=== PATIENT | female | born 1945 | race Caucasian/White ===

== ENCOUNTER 2025-02-07 11:26 | Inpatient (IN) | payer MEDICARE ==
[~2025-02-07] VITALS: Ht 162.6 cm; Wt 79.4 kg
[2025-02-07 13:51] VITALS: BP 123/62; TEMP 97.7
[2025-02-08 11:25] VITALS: BP 123/62; TEMP 97.7
[2025-02-08 11:28] VITALS: BP 123/62; TEMP 97.7
[2025-02-09] MEDS ORDERED: REMEDY ESSENTIAL ZINC PASTE 113 GM TOP PRN (22:00)
[2025-02-09 22:06] VITALS: BP 157/69; TEMP 98.3; O2SAT 99
[2025-02-09] MEDS ORDERED: DIET75TA33 PO (22:19)
[2025-02-09] MEDS ORDERED: BUPR75TA8 PO (22:19)
[2025-02-09] MEDS ORDERED: PANT40TA49 PO (22:19)
[2025-02-09] MEDS ORDERED: ENOX40DI SQ (22:19)
[2025-02-09] MEDS ORDERED: HYDR-4275 PO (22:19)
[2025-02-09] MEDS ORDERED: Medication Not On Formulary EA (Hydrocodone Bit/Acetaminophen (Hydrocodon-Acetaminophen PO SCH (22:30)
[2025-02-10 08:00] VITALS: BP 166/60; TEMP 98.3; O2SAT 96
[2025-02-10] MEDS ORDERED: DIETHYLPROPION PO SCH (09:00)
[2025-02-10] MEDS: PANTOPRAZOLE SODIUM 40 MG TABLET.DR PO SCH (09:56)
[2025-02-10] MEDS: HYDROCODONE/APAP 5-325MG TABLET PO PRN (10:29)
[2025-02-10] MEDS ORDERED: BUPR-53 PO (10:30)
[2025-02-10] MEDS ORDERED: VALS1TAB4 PO (10:32)
[2025-02-10] MEDS: ENOXAPARIN SODIUM 40 MG/0.4 ML DISP.SYRIN SQ SCH (10:37)
[2025-02-10] MEDS: HYDROCHLOROTHIAZIDE 12.5 MG CAPSULE PO SCH (12:53)
[2025-02-10] MEDS: METOPROLOL TARTRATE 25 MG TABLET PO SCH (12:53)
[2025-02-10 16:10] VITALS: O2SAT 96
[2025-02-10 17:00] VITALS: BP 124/42; TEMP 98.3; O2SAT 100
[2025-02-10] MEDS ORDERED: buPROPion 75 MG TABLET PO SCH (18:00)
[2025-02-10 20:51] VITALS: BP 120/53; TEMP 98.3; O2SAT 98
[2025-02-11 07:06] VITALS: BP 123/60; TEMP 97.2; O2SAT 98
[2025-02-11 08:00] VITALS: TEMP 97.7
[2025-02-11 08:34] LABS: BASOPHILS % (AUTO) 0.3 % (0.0-2.0); EOSINOPHILS # (AUTO) 0.2 K/uL (0.0-0.7); EOSINOPHILS % (AUTO) 2.7 % (0.0-7.0); HEMATOCRIT 27.3 % (31.2-41.9); HEMOGLOBIN 8.9 g/dL (10.9-14.3); LYMPHOCYTES # (AUTO) 1.6 K/uL (0.8-4.8); LYMPHOCYTES % (AUTO) 19.8 % (20.5-51.5); MEAN CORPUSCULAR HEMOGLOBIN 25.7 uug (24.7-32.8); MEAN CORPUSCULAR HGB CONC 33 g/dL (32.3-35.6); MEAN CORPUSCULAR VOLUME 78.6 fL (75.5-95.3); MONOCYTES # (AUTO) 0.9 K/uL (0.1-1.30); MONOCYTES % (AUTO) 10.8 % (0.0-11.0); NEUTROPHILS # (AUTO) 5.5 K/uL (1.8-8.9); NEUTROPHILS % (AUTO) 66.4 % (38.5-71.5); PLATELET COUNT (AUTO) 435 K/uL (179-408); RED BLOOD CELL COUNT(AUTO) 3.48 MIL/uL (3.63-4.92); RED CELL DISTRIBUTION WIDTH 18.5 % (12.3-17.7); WHITE BLOOD COUNT (AUTO) 8.2 K/uL (3.8-11.8)
[2025-02-11 08:48] LABS: DIFFERENTIAL COMMENT 1
[2025-02-11 08:52] LABS: IRON, SERUM 48 ug/dL (50-175)
[2025-02-11 09:04] LABS: ALANINE AMINOTRANSFERASE 73 U/L (14-59); ALBUMIN 2.5 g/dL (3.4-5.0); ALKALINE PHOSPHATASE 179 U/L (50-136); ASPARTATE AMINOTRANSFERASE 57 U/L (15-37); BILIRUBIN,TOTAL 0.6 mg/dL (0.2-1.0); CALCIUM 9.2 mg/dL (8.5-10.1); CARBON DIOXIDE 30 mmol/L (21-32); CHLORIDE 92 mmol/L (98-107); CREATININE 0.7 mg/dL (0.6-1.3); GLUCOSE 102 mg/dL (74-106); MAGNESIUM 1.3 mg/dL (1.8-2.4); NT-PRO BNP 226 pg/mL (0-125); PHOSPHOROUS 3.7 mg/dL (2.5-4.9); POTASSIUM 3.9 mmol/L (3.5-5.1); SODIUM SERUM 129 mmol/L (136-145); TOTAL PROTEIN, SERUM 6.6 g/dL (6.4-8.2); UREA NITROGEN, BLOOD 26 mg/dL (7-18)
[2025-02-11 09:29] LABS: THYROID STIMULATING HORMONE 0.962 mIU/mL (0.358-3.740)
[2025-02-11] MEDS: buPROPion XL 150 MG TAB.SR.24H PO SCH (09:41)
[2025-02-11 09:42] LABS: CHOLESTEROL 199 mg/dL (<200); HDL CHOLESTEROL 56 mg/dL (40-60); TRIGLYCERIDES 157 MG/DL (30-150)
[2025-02-11 14:07] VITALS: O2SAT 98
[2025-02-11 16:00] VITALS: TEMP 98.7
[2025-02-11 20:19] VITALS: BP 120/45; TEMP 98.4; O2SAT 95
[2025-02-11] MEDS: DOCUSATE SODIUM 100 MG CAPSULE PO SCH (21:51)
[2025-02-11] MEDS: ATORVASTATIN 10 MG TABLET PO SCH (21:51)
[2025-02-12 04:51] VITALS: O2SAT 98
[2025-02-12 05:15] VITALS: BP 131/55; TEMP 98.4; O2SAT 95
[2025-02-12 07:52] VITALS: BP 129/60; TEMP 97.7; O2SAT 97
[2025-02-12 16:02] VITALS: BP 135/53; TEMP 98.2; O2SAT 98
[2025-02-12] MEDS: MAGNESIUM HYDROXIDE 30 ML LIQUID UDC PO PRN (17:50)
[2025-02-12] MEDS: OXYCODONE HCL 5 MG TABLET PO PRN (20:28)
[2025-02-12 22:01] VITALS: BP 148/66; TEMP 98.8; O2SAT 98
[2025-02-13 06:15] VITALS: BP 100/61; TEMP 98.3; O2SAT 95
[2025-02-13 10:34] VITALS: TEMP 98.1
[2025-02-13 16:20] VITALS: O2SAT 98
[2025-02-13 16:38] VITALS: TEMP 98
[2025-02-13 20:06] VITALS: BP 126/35; TEMP 98.3; O2SAT 96
[2025-02-14 02:02] VITALS: O2SAT 98
[2025-02-14 07:19] VITALS: BP 140/63; TEMP 98.3; O2SAT 95
[2025-02-14 08:00] VITALS: BP 144/71; TEMP 97.8; O2SAT 97
[2025-02-14] MEDS: LACTULOSE 20 G/30 ML LIQUID UDC PO PRN (11:36)
[2025-02-14] MEDS: BISACODYL 10 MG SUPP.RECT RC ONE (13:44)
[2025-02-14 16:00] VITALS: BP 146/76; TEMP 97.2; O2SAT 97
[2025-02-14 20:50] VITALS: BP 140/62; TEMP 98.1; O2SAT 96
[2025-02-15 06:32] VITALS: BP 143/63; TEMP 98.1; O2SAT 97
[2025-02-15 08:00] VITALS: TEMP 98.7
[2025-02-15 16:21] VITALS: TEMP 98.4
[2025-02-15 16:35] VITALS: O2SAT 97
[2025-02-15 19:54] VITALS: BP 106/54; TEMP 98.2; O2SAT 97
[2025-02-15 21:34] VITALS: BP 119/56
[2025-02-16 02:36] VITALS: O2SAT 97
[2025-02-16 05:40] VITALS: BP 123/53; TEMP 98.3; O2SAT 96
[2025-02-16 07:42] LABS: BASOPHILS % (AUTO) 0.3 % (0.0-2.0); EOSINOPHILS # (AUTO) 0.1 K/uL (0.0-0.7); HEMATOCRIT 27.2 % (31.2-41.9); HEMOGLOBIN 9.3 g/dL (10.9-14.3); LYMPHOCYTES # (AUTO) 1.9 K/uL (0.8-4.8); MEAN CORPUSCULAR HEMOGLOBIN 27.1 uug (24.7-32.8); MEAN CORPUSCULAR HGB CONC 34 g/dL (32.3-35.6); MEAN CORPUSCULAR VOLUME 79.5 fL (75.5-95.3); MONOCYTES # (AUTO) 0.9 K/uL (0.1-1.30); MONOCYTES % (AUTO) 8.3 % (0.0-11.0); NEUTROPHILS % (AUTO) 73.4 % (38.5-71.5); PLATELET COUNT (AUTO) 689 K/uL (179-408); RED BLOOD CELL COUNT(AUTO) 3.43 MIL/uL (3.63-4.92); RED CELL DISTRIBUTION WIDTH 20.7 % (12.3-17.7); WHITE BLOOD COUNT (AUTO) 10.9 K/uL (3.8-11.8)
[2025-02-16 07:52] LABS: DIFFERENTIAL COMMENT 1
[2025-02-16 08:00] VITALS: BP 131/69; TEMP 98.3; O2SAT 96
[2025-02-16 08:02] LABS: ALANINE AMINOTRANSFERASE 52 U/L (14-59); ALBUMIN 2.6 g/dL (3.4-5.0); ALKALINE PHOSPHATASE 196 U/L (50-136); ASPARTATE AMINOTRANSFERASE 26 U/L (15-37); BILIRUBIN,TOTAL 0.6 mg/dL (0.2-1.0); CALCIUM 8.9 mg/dL (8.5-10.1); CARBON DIOXIDE 27 mmol/L (21-32); CHLORIDE 91 mmol/L (98-107); CREATININE 0.8 mg/dL (0.6-1.3); GLUCOSE 102 mg/dL (74-106); MAGNESIUM 2.1 mg/dL (1.8-2.4); PHOSPHOROUS 3.5 mg/dL (2.5-4.9); POTASSIUM 3.7 mmol/L (3.5-5.1); SODIUM SERUM 127 mmol/L (136-145); TOTAL PROTEIN, SERUM 6.8 g/dL (6.4-8.2); UREA NITROGEN, BLOOD 38 mg/dL (7-18)
[2025-02-16] MEDS: ENSURE ENLIVE (VAN) 240 ML LIQUID PO SCH (09:33)
[2025-02-16 16:05] VITALS: BP 112/54; TEMP 98.1; O2SAT 97
[2025-02-16 21:00] VITALS: BP 101/52; TEMP 98; O2SAT 95
[2025-02-16 21:56] VITALS: BP 106/48
[2025-02-17 06:26] VITALS: BP 123/55; TEMP 98.6; O2SAT 95
[2025-02-17 08:00] VITALS: BP 131/59; TEMP 97.8; O2SAT 96
[2025-02-17 15:53] VITALS: BP 110/46; TEMP 98.9; O2SAT 97
[2025-02-17 21:17] VITALS: BP 107/43; TEMP 98.5; O2SAT 96
[2025-02-18 06:25] VITALS: BP 108/58; TEMP 98; O2SAT 95
[2025-02-18 07:39] LABS: CALCIUM 8.6 mg/dL (8.5-10.1); CARBON DIOXIDE 26 mmol/L (21-32); CHLORIDE 98 mmol/L (98-107); CREATININE 0.7 mg/dL (0.6-1.3); GLUCOSE 106 mg/dL (74-106); POTASSIUM 4.3 mmol/L (3.5-5.1); SODIUM SERUM 132 mmol/L (136-145); UREA NITROGEN, BLOOD 33 mg/dL (7-18)
[2025-02-18 08:00] VITALS: BP 149/58; TEMP 98.1; O2SAT 97
[2025-02-18 17:00] VITALS: BP 104/87; TEMP 98.6; O2SAT 96
[2025-02-18 20:16] VITALS: BP 117/52; TEMP 98.6; O2SAT 95
[2025-02-19 06:42] VITALS: BP 110/62; TEMP 98.5; O2SAT 96
[2025-02-19 07:55] VITALS: TEMP 98.3
[2025-02-19 16:00] VITALS: TEMP 98.2
[2025-02-19 19:35] VITALS: BP 122/51; TEMP 98.1; O2SAT 97
[2025-02-20 05:45] VITALS: BP 143/52; TEMP 98.2; O2SAT 95
[2025-02-20 08:00] VITALS: BP 104/49; TEMP 98.1; O2SAT 100
[2025-02-20] MEDS: HYDROMORPHONE HCL 2 MG TABLET PO PRN (13:02)
[2025-02-20 16:00] VITALS: BP 124/50; TEMP 97.4; O2SAT 95
[2025-02-20 21:26] VITALS: BP 120/42; TEMP 98.5; O2SAT 96
[2025-02-21 07:24] VITALS: BP 130/59; TEMP 97.7; O2SAT 96
[2025-02-21 08:01] VITALS: BP 131/59; TEMP 98.5
[2025-02-21 16:09] VITALS: BP 127/59; TEMP 98
[2025-02-21 21:51] VITALS: BP 111/48; TEMP 98.6; O2SAT 97
[2025-02-22 07:22] VITALS: BP 124/57; TEMP 97.9; O2SAT 98
[2025-02-22 08:00] VITALS: BP 135/68; TEMP 97.6; O2SAT 98
[2025-02-22 11:37] LABS: BASOPHILS # (AUTO) 0.1 K/UL (0.0-0.2); BASOPHILS % (AUTO) 0.6 % (0.0-2.0); DIFFERENTIAL COMMENT 1; EOSINOPHILS # (AUTO) 0.2 K/uL (0.0-0.7); EOSINOPHILS % (AUTO) 1.9 % (0.0-7.0); HEMATOCRIT 26.5 % (31.2-41.9); HEMOGLOBIN 8.9 g/dL (10.9-14.3); LYMPHOCYTES # (AUTO) 2.1 K/uL (0.8-4.8); LYMPHOCYTES % (AUTO) 23.1 % (20.5-51.5); MEAN CORPUSCULAR HEMOGLOBIN 27.1 uug (24.7-32.8); MEAN CORPUSCULAR HGB CONC 34 g/dL (32.3-35.6); MEAN CORPUSCULAR VOLUME 80.5 fL (75.5-95.3); MONOCYTES # (AUTO) 0.8 K/uL (0.1-1.30); MONOCYTES % (AUTO) 9.3 % (0.0-11.0); NEUTROPHILS # (AUTO) 5.9 K/uL (1.8-8.9); NEUTROPHILS % (AUTO) 65.1 % (38.5-71.5); PLATELET COUNT (AUTO) 687 K/uL (179-408); RED CELL DISTRIBUTION WIDTH 20.2 % (12.3-17.7)
[2025-02-22 11:53] LABS: ALANINE AMINOTRANSFERASE 30 U/L (14-59); ALBUMIN 2.6 g/dL (3.4-5.0); ALKALINE PHOSPHATASE 190 U/L (50-136); ASPARTATE AMINOTRANSFERASE 22 U/L (15-37); BILIRUBIN,TOTAL 0.2 mg/dL (0.2-1.0); CALCIUM 8.3 mg/dL (8.5-10.1); CARBON DIOXIDE 26 mmol/L (21-32); CHLORIDE 97 mmol/L (98-107); CREATININE 0.6 mg/dL (0.6-1.3); GLUCOSE 95 mg/dL (74-106); MAGNESIUM 1.7 mg/dL (1.8-2.4); PHOSPHOROUS 3.9 mg/dL (2.5-4.9); POTASSIUM 4.3 mmol/L (3.5-5.1); SODIUM SERUM 134 mmol/L (136-145); TOTAL PROTEIN, SERUM 6.4 g/dL (6.4-8.2); UREA NITROGEN, BLOOD 28 mg/dL (7-18)
[2025-02-22 16:00] VITALS: BP 105/48; TEMP 97.6; O2SAT 96
[2025-02-22 19:59] VITALS: BP 114/58; TEMP 97.9; O2SAT 97
[2025-02-23 06:18] VITALS: BP 130/64; TEMP 98.6; O2SAT 95
[2025-02-23 08:01] VITALS: BP 127/90; TEMP 98; O2SAT 96
[2025-02-23 15:40] VITALS: BP 123/60; TEMP 97.2; O2SAT 97
[2025-02-23 19:50] VITALS: BP 125/59; TEMP 97.9; O2SAT 95
[2025-02-24 05:30] VITALS: BP 143/69; TEMP 98.1; O2SAT 96
[2025-02-24 08:00] VITALS: BP 134/56; TEMP 98; O2SAT 98
[2025-02-24 16:19] VITALS: BP 118/59; TEMP 98.4; O2SAT 97
[2025-02-24 21:37] VITALS: BP 124/55; TEMP 97.4; O2SAT 97
[2025-02-25 07:03] VITALS: BP 128/62; TEMP 97.3; O2SAT 95
[2025-02-25 07:51] VITALS: BP 136/57; TEMP 98.2; O2SAT 99
[2025-02-25] MEDS ORDERED: LINEZOLID 600 MG TABLET PO SCH (11:00)
[2025-02-25] MEDS: SULFAMETH/TRIMETH 800/160 MG TABLET PO SCH (12:20)
[2025-02-25 15:55] VITALS: BP 137/63; TEMP 98.6; O2SAT 96
[2025-02-25 20:46] VITALS: BP 129/57; TEMP 98; O2SAT 98
[2025-02-26 07:04] VITALS: BP 130/68; TEMP 98.2; O2SAT 97
[2025-02-26 07:55] VITALS: TEMP 97.8
[2025-02-26 08:54] VITALS: BP 132/58
[2025-02-26] MEDS: FERROUS GLUCONATE 324 MG TABLET PO SCH (08:54)
[2025-02-26 16:18] VITALS: TEMP 97.4
== END 2025-02-26 17:50 | disposition home health service (06) | DRG 560 ==
PROVIDERS: ADMIT Physical Medicine & Rehabilitation Pain Medicine; ATTEND Physical Medicine & Rehabilitation Pain Medicine
DX: S72.142D Displaced intertrochanteric fracture of left femur, subsequent encounter for closed fracture with routine healing (principal); D62 Acute posthemorrhagic anemia; E22.2 Syndrome of inappropriate secretion of antidiuretic hormone; D68.59 Other primary thrombophilia; E44.0 Moderate protein-calorie malnutrition; S32.592D Other specified fracture of left pubis, subsequent encounter for fracture with routine healing; S42.212D Unspecified displaced fracture of surgical neck of left humerus, subsequent encounter for fracture with routine healing; W01.0XXD Fall on same level from slipping, tripping and stumbling without subsequent striking against object, subsequent encounter; D64.9 Anemia, unspecified; I10 Essential (primary) hypertension; Z88.0 Allergy status to penicillin; D75.839 Thrombocytosis, unspecified; E78.5 Hyperlipidemia, unspecified; E83.42 Hypomagnesemia; E86.0 Dehydration; F32.A Depression, unspecified; E88.09 Other disorders of plasma-protein metabolism, not elsewhere classified; I70.0 Atherosclerosis of aorta; Z68.30 Body mass index [BMI] 30.0-30.9, adult
CPT/HCPCS: 36415; 73501; 73700; 82652; 83550; 83735; 84100; 84443; 84484; 84550; 85025; 97535-GO-CO; A4663; J1650